=== PATIENT | male | born 1990 | race Caucasian/White ===

== ENCOUNTER 2020-11-17 21:37 | Emergency (ER) | payer BC, OTHER ==
[~2020-11-17] VITALS: Ht 175.3 cm; Wt 69.8 kg
[~2020-11-17 21:37] MED LIST: HYDR1TAB PO; IBUP-1572 PO; NO HOME MEDS
[2020-11-17 22:09] VITALS: BP 120/76
[2020-11-17] MEDS ORDERED: diphenhydrAMINE 25mg capsule PO ONE (22:20)
[2020-11-17] MEDS ORDERED: epiNEPHrine 1 mg/ml inj SQ ONE (22:20)
[2020-11-17] MEDS ORDERED: famotidine 20mg tablet PO ONE (22:20)
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
--- NOTE | 2020-11-17 22:48 | NUR ---
RING HAS BEEN REMOVED, PT IS RESTING QUIETLY ON GURNEY, ARM ELEVATED, BLISTERS TO FINGER, PT WAITING TO BE EVALUATED
--- NOTE | 2020-11-17 22:54 | NUR ---
DR HANEY AT BEDSIDE TO EVALUATE PT
[2020-11-17] MEDS ORDERED: DOXYCYCLINE 100MG CAPSULE PO STA (23:05)
[2020-11-17] MEDS ORDERED: DOXY-1 PO (23:18)
== END 2020-11-17 23:30 | disposition home or self-care (01) ==
LOC: ER 21:40
DX: T63.441A Toxic effect of venom of bees, accidental (unintentional), initial encounter (principal); T78.2XXA Anaphylactic shock, unspecified, initial encounter; F10.129 Alcohol abuse with intoxication, unspecified; F17.210 Nicotine dependence, cigarettes, uncomplicated; M79.645 Pain in left finger(s); R20.0 Anesthesia of skin; Z72.89 Other problems related to lifestyle; Z98.890 Other specified postprocedural states; Z79.2 Long term (current) use of antibiotics; Z79.899 Other long term (current) drug therapy; Y92.89 Other specified places as the place of occurrence of the external cause; Y90.9 Presence of alcohol in blood, level not specified
CPT/HCPCS: 96372; 99284; 99406; J0171; Q0163

== ENCOUNTER 2021-06-03 14:39 | Inpatient (IN) | payer OTHER ==
[~2021-06-03] VITALS: Ht 167.6 cm; Wt 45.0 kg
--- NOTE | 2021-06-03 14:45 | NUR ---
pt brought in by police from retirement due to pt becoming more confused since yesterday morning. police stated pt was staring at the wall and wrestling with blanket. pt presents with blank stare and unable to answer basic questions.
[2021-06-03] MEDS ORDERED: haloperidol lactate 5mg/ml inj IM ONE (14:55)
[2021-06-03] MEDS ORDERED: diphenhydrAMINE 50 mg/ml inj IM ONE (14:55)
[2021-06-03] MEDS ORDERED: LORazepam 2 mg/ml vial IM ONE (14:55)
[2021-06-03 15:22] LABS: BASOPHILS # (AUTO) 0.1 X10'3 (0-0.2); BASOPHILS % (AUTO) 0.8 % (0-1); EOSINOPHILS % (AUTO) 0.1 % (0-6); HEMATOCRIT 39.9 % (42.0-52.0); HEMOGLOBIN 14.1 g/dl (14.0-17.9); LYMPHOCYTES % (AUTO) 8.3 % (21-51); MEAN CORPUSCULAR HEMOGLOBIN 33.9 PG (27.0-31.0); MEAN CORPUSCULAR HGB CONC 35.2 g/dL (33.0-36.5); MEAN CORPUSCULAR VOLUME 96.4 FL (78-98); MEAN PLATELET VOLUME 8.8 FL (7.4-10.4); MONOCYTES % (AUTO) 15.9 % (2-12); NEUTROPHILS # (AUTO) 9.2 X10'3 (1.8-7.7); NEUTROPHILS % (AUTO) 74.9 % (42-75); PLATELET COUNT 222 X10'3 (140-440); RED BLOOD COUNT 4.15 X10'6 (4.70-6.10); RED CELL DISTRIBUTION WIDTH 13.3 % (11.5-14.5); WHITE BLOOD COUNT 12.3 X10'3 (4.5-11.0)
[2021-06-03 15:49] LABS: ALANINE AMINOTRANSFERASE 150 U/L (12-78); ALBUMIN 5.2 G/DL (3.4-5.0); ALBUMIN/GLOBULIN RATIO 1.1 (1.1-1.5); ALKALINE PHOSPHATASE 85 IU/L (46-116); ANION GAP 32 (8-16); ASPARTATE AMINO TRANSFERASE 204 U/L (10-37); BILIRUBIN,TOTAL 1.5 MG/DL (0.1-1.0); BLOOD UREA NITROGEN 148 MG/DL (7-18); BUN/CREATININE RATIO 23.9 (5.4-32.0); CALCIUM 9.6 MG/DL (8.5-10.1); CHLORIDE 91 MMOL/L (99-107); ETHANOL < 0.010 GM/DL (0.0-0.010); GLUCOSE 115 MG/DL (70-104); POTASSIUM 3.8 MMOL/L (3.5-5.1); SODIUM 137 MMOL/L (135-145); TOTAL PROTEIN 9.9 G/DL (6.4-8.2); eGFR 10 ML/MIN
[2021-06-03 15:53] LABS: TOTAL CARBON DIOXIDE 14.5 MMOL/L (24-32)
[2021-06-03] MEDS ORDERED: normal saline 1000ML IV soln IVB ONE (15:55)
--- NOTE | 2021-06-03 16:08 | NUR ---
BLADDER SCAN WITH 65 ML PRESENT. SOTERO ALEXANDER NOTIFIED.
[2021-06-03] MEDS ORDERED: normal saline 1000ML IV soln IV ONE (16:15)
[2021-06-03] MEDS ORDERED: LIDOcaine 2% 10ml TOPICAL JELLY (Urojet) TP ONE (16:20)
[2021-06-03 16:32] LABS: ACETAMINOPHEN < 2.0 UG/ML (10-30)
[2021-06-03 16:47] LABS: ABG BASE EXCESS -11.1 mmol/L (-2.0-2.0); ABG HCO3 13.9 mmol/L (22.0-26.0); ABG OXYGEN SATURATION 94.2 % (94-97); ABG PCO2 (T) 29.2 mmHg (35.0-48.0); ABG PO2 (T) 85.7 mmHg (75.0-100.0); ALLEN'S TEST POSITIVE; FCOHb 0.4 % (0.0-3.9); FMetHb 0.1 % (0.0-1.5); FO2Hb 93.7 % (94-97); TOTAL HEMOGLOBIN 13.9 G/dl (14.0-18.0)
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
[2021-06-03 17:03] LABS: CREATINE KINASE 11166 U/L (39-308)
[2021-06-03 17:39] LABS: SODIUM,URINE RANDOM 35 MEQ/L; TOTAL PROTEIN,URINE RANDOM 119.7 MG/DL; URINE AMPHETAMINE SCREEN POSITIVE (Neg); URINE BARBITUATE SCREEN NEGATIVE (Neg); URINE BENZODIAZEPINES SCREEN NEGATIVE (Neg); URINE CANNABINOID SCREEN NEGATIVE (Neg); URINE COCAINE SCREEN NEGATIVE (Neg); URINE METHADONE SCREEN NEGATIVE (Neg); URINE OPIATE SCREEN NEGATIVE (Neg); URINE PHENCYCLIDINE SCREEN NEGATIVE (Neg)
[2021-06-03 17:56] LABS: CLARITY,URINE SLIGHTLY CLOUDY (Clear); COLOR,URINE YELLOW (Yellow); GLUCOSE, URINE NEGATIVE (Neg); KETONES,URINE 15 mg/dl (Neg); LEUKOCYTE ESTERASE ,URINE NEGATIVE (Neg); NITRITES, URINE NEGATIVE (Neg); OCCULT BLOOD,URINE LARGE (Neg); PROTEIN,URINE 100 mg/dl (Neg); UROBILINOGEN,URINE 0.2 E.U/dL (0.2-1.0)
[2021-06-03 17:58] LABS: UA COLLECTION TYPE FOLEY CATH
[2021-06-03 18:03] LABS: BACTERIA,URINE FEW /HPF (Neg); RBC,URINE 0-2 /HPF (0-2); WBC,URINE 0-4 /HPF (0-4)
[2021-06-03 18:04] LABS: MUCUS STRANDS NONE SEEN /LPF (Neg); RENAL CELLS, URINE FEW /HPF; SQUAMOUS EPITHELIAL CELL,UR NONE SEEN /LPF (FEW)
[2021-06-03] MEDS: sodium bicarbonate (8.4%) inj. 150 MEQ in dextrose 5%-water 1,000 ML IV SCH (18:28)
[2021-06-03] MEDS ORDERED: HYDROcodone/acetaminophen 5mg/325mg tablet PO PRN (19:20)
[2021-06-03] MEDS ORDERED: acetaminophen 325mg tablet PO PRN ×2 (19:20)
[2021-06-03] MEDS ORDERED: acetaminophen 650mg rectal suppository RC PRN (19:20)
[2021-06-03] MEDS ORDERED: bisacodyl 10mg suppository rectal RC PRN (19:20)
[2021-06-03] MEDS ORDERED: diphenhydrAMINE 25mg capsule PO PRN (19:20)
[2021-06-03 19:25] LABS: UA EOSINOPHILS NO EOS /HPF
[2021-06-03] MEDS ORDERED: UNABLE TO OBTAIN (19:31)
[2021-06-03 19:52] LABS: HEMOGLOBIN A1C 5.4 % (4.5-6.2)
[2021-06-03] MEDS: docusate sod 100mg capsule PO SCH (20:00)
[2021-06-03] MEDS: heparin, porcine 5000 units/ml vial SQ SCH (20:00)
[2021-06-03] MEDS: CefTRIAXone/D5W-Rocephin 1gm 50 ML IV SCH (20:25)
[2021-06-03] MEDS ORDERED: linezolid 600mg/300ml PREMIX 300 ML IV SCH (20:25)
[2021-06-03 22:56] LABS: ALANINE AMINOTRANSFERASE 116 U/L (12-78); ALBUMIN 3.7 G/DL (3.4-5.0); ALKALINE PHOSPHATASE 64 IU/L (46-116); ANION GAP 16 (8-16); ASPARTATE AMINO TRANSFERASE 156 U/L (10-37); BLOOD UREA NITROGEN 117 MG/DL (7-18); BUN/CREATININE RATIO 32.5 (5.4-32.0); CALCIUM 8.2 MG/DL (8.5-10.1); CHLORIDE 104 MMOL/L (99-107); GLUCOSE 143 MG/DL (70-104); POTASSIUM 3.4 MMOL/L (3.5-5.1); SODIUM 143 MMOL/L (135-145); TOTAL CARBON DIOXIDE 22.6 MMOL/L (24-32); TOTAL PROTEIN 7.3 G/DL (6.4-8.2); eGFR 20 ML/MIN
--- NOTE | 2021-06-04 01:57 | NUR ---
Zyvox administered at 0130. Pharmacy notified and next dose of zyvox retimed
--- NOTE | 2021-06-04 02:00 | NUR ---
Assumed care of patient. Bicarbonate found running with end of tubing disconnected from patient. Large amount of fluid on floor. Tubing replaced and connected to patient. Floor dried.
[2021-06-04] MEDS: sodium bicarbonate (8.4%) inj. 150 MEQ in dextrose 5%-water 1,000 ML IV SCH ×3 (02:10→18:20)
[2021-06-04] MEDS: linezolid 600mg/300ml PREMIX 300 ML IV SCH ×2 (02:19→14:00)
[2021-06-04] MEDS ORDERED: diphenhydrAMINE 50 mg/ml inj IV ONE (04:10)
[2021-06-04 07:45] LABS: BASOPHILS % (AUTO) 0.5 % (0-1); EOSINOPHILS % (AUTO) 0.2 % (0-6); HEMATOCRIT 32.5 % (42.0-52.0); HEMOGLOBIN 11.4 g/dl (14.0-17.9); LYMPHOCYTES # (AUTO) 1.1 X10'3 (1.1-4.8); LYMPHOCYTES % (AUTO) 18.1 % (21-51); MEAN CORPUSCULAR HEMOGLOBIN 33.5 PG (27.0-31.0); MEAN CORPUSCULAR HGB CONC 35.3 g/dL (33.0-36.5); MEAN CORPUSCULAR VOLUME 95.1 FL (78-98); MEAN PLATELET VOLUME 8.1 FL (7.4-10.4); MONOCYTES # (AUTO) 1.3 X10'3 (0-0.9); MONOCYTES % (AUTO) 19.9 % (2-12); NEUTROPHILS # (AUTO) 3.9 X10'3 (1.8-7.7); NEUTROPHILS % (AUTO) 61.3 % (42-75); PLATELET COUNT 162 X10'3 (140-440); RED BLOOD COUNT 3.41 X10'6 (4.70-6.10); RED CELL DISTRIBUTION WIDTH 13.9 % (11.5-14.5); WHITE BLOOD COUNT 6.3 X10'3 (4.5-11.0)
[2021-06-04] MEDS: heparin, porcine 5000 units/ml vial SQ SCH ×2 (08:34→20:40)
[2021-06-04] MEDS: CefTRIAXone/D5W-Rocephin 1gm 50 ML IV SCH (08:34)
[2021-06-04] MEDS: docusate sod 100mg capsule PO SCH ×2 (08:34→20:00)
[2021-06-04 08:39] LABS: TOTAL CELLS COUNTED 100
[2021-06-04 08:40] LABS: PLATELET ESTIMATE NORMAL
--- NOTE | 2021-06-04 10:00 | NUR ---
pt ambulated to restroom w/o assistance and with steady gait. pt eat all of his breakfast meal and drinking water on his own.
[2021-06-04 10:16] LABS: ALANINE AMINOTRANSFERASE 111 U/L (12-78); ALBUMIN 3.5 G/DL (3.4-5.0); ALKALINE PHOSPHATASE 57 IU/L (46-116); ANION GAP 11 (8-16); ASPARTATE AMINO TRANSFERASE 147 U/L (10-37); BILIRUBIN,TOTAL 1.2 MG/DL (0.1-1.0); BLOOD UREA NITROGEN 82 MG/DL (7-18); BUN/CREATININE RATIO 42.9 (5.4-32.0); CALCIUM 8.4 MG/DL (8.5-10.1); CHLORIDE 104 MMOL/L (99-107); CHOL/HDL RATIO 3.8 (0.00-4.99); CHOLESTEROL 173 MG/DL (0-200); CREATININE 1.91 MG/DL (0.60-1.10); GLUCOSE 113 MG/DL (70-104); HDL CHOLESTEROL 46 MG/DL (35-60); LDL CHOLESTEROL 97 MG/DL (50-100); MAGNESIUM 3.6 MG/DL (1.5-2.4); SODIUM 145 MMOL/L (135-145); TOTAL CARBON DIOXIDE 29.7 MMOL/L (24-32); TOTAL PROTEIN 6.9 G/DL (6.4-8.2); TRIGLYCERIDES 176 MG/DL (20-135); eGFR 41 ML/MIN
[2021-06-04 10:22] LABS: POTASSIUM 2.8 MMOL/L (3.5-5.1)
[2021-06-04 10:23] LABS: CREATINE KINASE 5992 U/L (39-308)
[2021-06-04] MEDS: K and/or MAG REPLACEMENT MC SCH (10:30)
[2021-06-04] MEDS ORDERED: dextrose 5%-normal saline 1,000 ML IV SCH (11:05)
[2021-06-04] MEDS ORDERED: dextrose 5%-water 1,000 ML IV ONE (11:05)
[2021-06-04] MEDS: potassium Cl 20 mEq SR tablet PO PRN ×3 (11:42→23:14)
[2021-06-04 12:53] LABS: ABG BASE EXCESS 6.2 mmol/L (-2.0-2.0); ABG HCO3 28.3 mmol/L (22.0-26.0); ABG OXYGEN SATURATION 96.6 % (94-97); ABG PCO2 (T) 32.3 mmHg (35.0-48.0); ALLEN'S TEST POSITIVE; FCOHb 0.2 % (0.0-3.9); FMetHb 0.3 % (0.0-1.5); FO2Hb 96.1 % (94-97); TOTAL HEMOGLOBIN 11.8 G/dl (14.0-18.0)
--- NOTE | 2021-06-04 13:14 | NUR ---
LUNCH MEAL TRAY GIVEN TO PT
[2021-06-04] MEDS: HYDROcodone/acetaminophen 10/325mg tab PO PRN ×2 (15:54→23:15)
[2021-06-04] MEDS ORDERED: NO HOME MEDS (16:13)
[2021-06-04 17:59] LABS: ALBUMIN 3.1 G/DL (3.4-5.0); ANION GAP 5 (8-16); BLOOD UREA NITROGEN 46 MG/DL (7-18); BUN/CREATININE RATIO 37.1 (5.4-32.0); CALCIUM 8.1 MG/DL (8.5-10.1); CHLORIDE 100 MMOL/L (99-107); CREATININE 1.24 MG/DL (0.60-1.10); GLUCOSE 111 MG/DL (70-104); POTASSIUM 3.3 MMOL/L (3.5-5.1); SODIUM 140 MMOL/L (135-145); TOTAL CARBON DIOXIDE 35.4 MMOL/L (24-32); eGFR 67 ML/MIN
--- NOTE | 2021-06-04 19:00 | NUR ---
Patient sitting up on gurney eating dinner w/o problem. Bicarb was turned off due to elevated lab.
[2021-06-04] MEDS: lactobacillus rhamnosus 10,000 MMU CELLS/CAPSULE PO SCH (20:40)
[2021-06-04] MEDS: dextrose 5%-normal saline 1,000 ML IV SCH (20:50)
[2021-06-04 23:00] VITALS: BP 114/76
[2021-06-05] MEDS: linezolid 600mg/300ml PREMIX 300 ML IV SCH ×2 (01:49→14:12)
[2021-06-05] MEDS: dextrose 5%-normal saline 1,000 ML IV SCH ×3 (01:52→19:38)
[2021-06-05 02:00] VITALS: BP 96/57
[2021-06-05 06:00] VITALS: BP 97/58
[2021-06-05 06:10] LABS: BASOPHILS % (AUTO) 0.5 % (0-1); EOSINOPHILS # (AUTO) 0.1 X10'3 (0-0.9); EOSINOPHILS % (AUTO) 1.3 % (0-6); HEMATOCRIT 30.2 % (42.0-52.0); HEMOGLOBIN 10.6 g/dl (14.0-17.9); LYMPHOCYTES # (AUTO) 1.9 X10'3 (1.1-4.8); LYMPHOCYTES % (AUTO) 36.2 % (21-51); MEAN CORPUSCULAR HEMOGLOBIN 33.5 PG (27.0-31.0); MEAN CORPUSCULAR HGB CONC 35.2 g/dL (33.0-36.5); MEAN CORPUSCULAR VOLUME 95.3 FL (78-98); MEAN PLATELET VOLUME 8.6 FL (7.4-10.4); MONOCYTES % (AUTO) 19.8 % (2-12); NEUTROPHILS # (AUTO) 2.2 X10'3 (1.8-7.7); NEUTROPHILS % (AUTO) 42.2 % (42-75); PLATELET COUNT 166 X10'3 (140-440); RED BLOOD COUNT 3.17 X10'6 (4.70-6.10); RED CELL DISTRIBUTION WIDTH 13.9 % (11.5-14.5); WHITE BLOOD COUNT 5.2 X10'3 (4.5-11.0)
[2021-06-05 06:36] LABS: ALANINE AMINOTRANSFERASE 100 U/L (12-78); ALBUMIN 2.8 G/DL (3.4-5.0); ALKALINE PHOSPHATASE 49 IU/L (46-116); ANION GAP 5 (8-16); ASPARTATE AMINO TRANSFERASE 120 U/L (10-37); BILIRUBIN,TOTAL 0.7 MG/DL (0.1-1.0); BLOOD UREA NITROGEN 25 MG/DL (7-18); BUN/CREATININE RATIO 27.8 (5.4-32.0); CALCIUM 8.3 MG/DL (8.5-10.1); CHLORIDE 101 MMOL/L (99-107); GLUCOSE 107 MG/DL (70-104); MAGNESIUM 2.5 MG/DL (1.5-2.4); PHOSPHORUS 2.6 MG/DL (2.3-4.5); POTASSIUM 3.4 MMOL/L (3.5-5.1); SODIUM 138 MMOL/L (135-145); TOTAL CARBON DIOXIDE 32.4 MMOL/L (24-32); TOTAL PROTEIN 5.7 G/DL (6.4-8.2); eGFR > 90 ML/MIN
[2021-06-05 06:38] LABS: CREATINE KINASE 3583 U/L (39-308)
[2021-06-05] MEDS: HYDROcodone/acetaminophen 10/325mg tab PO PRN ×4 (06:45→22:11)
[2021-06-05] MEDS: K and/or MAG REPLACEMENT MC SCH (08:00)
[2021-06-05] MEDS: heparin, porcine 5000 units/ml vial SQ SCH ×2 (08:29→19:37)
[2021-06-05] MEDS: lactobacillus rhamnosus 10,000 MMU CELLS/CAPSULE PO SCH ×2 (08:29→19:37)
[2021-06-05] MEDS: docusate sod 100mg capsule PO SCH ×2 (08:32→19:38)
[2021-06-05] MEDS: CefTRIAXone/D5W-Rocephin 1gm 50 ML IV SCH (08:32)
[2021-06-05] MEDS: potassium Cl 20 mEq SR tablet PO PRN (09:20)
[2021-06-05 11:00] VITALS: BP 102/60
--- NOTE | 2021-06-05 13:53 | NUR ---
relieving RN for lunch, pt is resting quietly on bed, playing on phone, said he has plans to go to out pt rehab, sitter at bedside
[2021-06-05 15:00] VITALS: BP 100/56
[2021-06-05 18:00] VITALS: BP 131/90
[2021-06-05 22:00] VITALS: BP 129/85
[2021-06-06 02:00] VITALS: BP 119/72
[2021-06-06] MEDS: linezolid 600mg/300ml PREMIX 300 ML IV SCH (02:12)
[2021-06-06] MEDS: dextrose 5%-normal saline 1,000 ML IV SCH ×2 (03:05→11:00)
[2021-06-06] MEDS: HYDROcodone/acetaminophen 10/325mg tab PO PRN ×2 (04:45→08:55)
[2021-06-06 06:00] VITALS: BP 119/77
[2021-06-06 06:32] LABS: BASOPHILS % (AUTO) 0.9 % (0-1); EOSINOPHILS # (AUTO) 0.2 X10'3 (0-0.9); EOSINOPHILS % (AUTO) 3.3 % (0-6); HEMATOCRIT 29.3 % (42.0-52.0); HEMOGLOBIN 10.3 g/dl (14.0-17.9); LYMPHOCYTES # (AUTO) 2.1 X10'3 (1.1-4.8); LYMPHOCYTES % (AUTO) 43.3 % (21-51); MEAN CORPUSCULAR HGB CONC 35.2 g/dL (33.0-36.5); MEAN CORPUSCULAR VOLUME 96.8 FL (78-98); MEAN PLATELET VOLUME 8.9 FL (7.4-10.4); MONOCYTES # (AUTO) 0.9 X10'3 (0-0.9); MONOCYTES % (AUTO) 17.4 % (2-12); NEUTROPHILS # (AUTO) 1.7 X10'3 (1.8-7.7); NEUTROPHILS % (AUTO) 35.1 % (42-75); PLATELET COUNT 180 X10'3 (140-440); RED BLOOD COUNT 3.03 X10'6 (4.70-6.10); RED CELL DISTRIBUTION WIDTH 13.8 % (11.5-14.5); WHITE BLOOD COUNT 4.9 X10'3 (4.5-11.0)
[2021-06-06 06:38] LABS: ALANINE AMINOTRANSFERASE 116 U/L (12-78); ALBUMIN 2.7 G/DL (3.4-5.0); ALBUMIN/GLOBULIN RATIO 0.9 (1.1-1.5); ALKALINE PHOSPHATASE 46 IU/L (46-116); ANION GAP 7 (8-16); ASPARTATE AMINO TRANSFERASE 96 U/L (10-37); BILIRUBIN,TOTAL 0.5 MG/DL (0.1-1.0); BLOOD UREA NITROGEN 15 MG/DL (7-18); BUN/CREATININE RATIO 19.7 (5.4-32.0); CALCIUM 8.2 MG/DL (8.5-10.1); CHLORIDE 107 MMOL/L (99-107); CREATININE 0.76 MG/DL (0.60-1.10); GLUCOSE 103 MG/DL (70-104); MAGNESIUM 2.2 MG/DL (1.5-2.4); PHOSPHORUS 1.9 MG/DL (2.3-4.5); POTASSIUM 4.1 MMOL/L (3.5-5.1); SODIUM 142 MMOL/L (135-145); TOTAL CARBON DIOXIDE 27.8 MMOL/L (24-32); TOTAL PROTEIN 5.8 G/DL (6.4-8.2); eGFR > 90 ML/MIN
[2021-06-06 06:42] LABS: CREATINE KINASE 1620 U/L (39-308)
[2021-06-06] MEDS: K and/or MAG REPLACEMENT MC SCH (08:00)
[2021-06-06] MEDS: lactobacillus rhamnosus 10,000 MMU CELLS/CAPSULE PO SCH (08:35)
[2021-06-06] MEDS: CefTRIAXone/D5W-Rocephin 1gm 50 ML IV SCH (08:35)
[2021-06-06] MEDS: heparin, porcine 5000 units/ml vial SQ SCH (08:35)
[2021-06-06] MEDS: docusate sod 100mg capsule PO SCH (08:35)
[2021-06-06 11:00] VITALS: BP 133/79
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
== END 2021-06-06 17:35 | disposition home or self-care (01) | DRG 91 ==
LOC: ER 14:40 → ED HOLD 19:23 → EDBEDREQ 06-04 22:26 → PCU 3S 06-04 23:06
PROVIDERS: ADMIT Family Medicine; ATTEND Family Medicine
DX: G92.8 Other toxic encephalopathy (principal); N17.0 Acute kidney failure with tubular necrosis; E87.2 Acidosis; M62.82 Rhabdomyolysis; E87.6 Hypokalemia; Z20.822 Contact with and (suspected) exposure to COVID-19; F15.10 Other stimulant abuse, uncomplicated; R79.89 Other specified abnormal findings of blood chemistry; F43.0 Acute stress reaction; Z91.19 Patient's noncompliance with other medical treatment and regimen; Z79.899 Other long term (current) drug therapy
CPT/HCPCS: 36415; 36600; 70450; 71045; 71250; 74176; 76770; 80048; 80053; 80061; 80305; 80320; 80329; 81001; 82550; 82570; 82803; 83036; 83605; 83735; 83930; 84100; 84145; 84156; 84300; 84443; 85007; 85018; 85025; 85610; 87040; 87081; 87207; 87635; 93005; 93306; 96360; 96361; 96372; 99291; C9803; G0378; J0696; J1200; J1630; J1644; J2020; J2060; J3490; J7030; J7042; J7070